=== PATIENT | female | born 1985 | race Caucasian/White ===

== ENCOUNTER 2022-01-16 00:45 | Day surgery (SDC) | payer OTHER, SELFPAY ==
[2022-01-14 16:57] VITALS: BMI 43.0
--- NOTE | 2022-01-14 17:04 | PC.NURSE ---
Report to the Outpatient Waiting Room, entrance under the green pavilion located off [facility], at time __11:00am on date __2-23-40 . OR Time: ____13:00pm____. - You and your visitor will be asked to self-screen and do not enter if you have any COVID symptoms. - Only one visitor and NO children visitors are allowed at this time. - The patient visitor is requested to leave or wait in car when not with patient due to restrictions. - A mask is required within the hospital. Patients may have clear liquids (water, carbonated beverages, clear teas, apple juice) until 3 hours prior to surgery with a maximum of 20 ounces. - No food from midnight until time of surgery - Clear liquids until 10:00am Take the following medications with a SIP of water the morning of surgery: resume home meds evening before Medications to discontinue per physician vitamins Date to take last dose stop now Please no make-up, nail divehi, hairspray, perfume, deodorant, or body powder the day of surgery. No jewelry (including any body piercings) or valuables the day of surgery, leave them at home. Please take a shower or bath the night before, or the morning of, surgery with an antibacterial soap. Wear comfortable, loose fitting clothing. - Jewelry must be removed prior to entering the operating room. Rings and piercings that are not removed may be cut off. - The hospital will not accept responsibility for valuables. - Please leave all valuables, including medications, at home the day of surgery. If you are going home after surgery, a licensed trolley coach driver must drive you home. - NO public transportation without another adult. - We recommend that an adult stay with you for 24 hours following discharge. - We also recommend that you do not drive, make important decision, drink alcoholic beverages, or take any drugs that were not prescribed by your health care provider for at least 24 hours after your discharge time. Follow any additional instructions given to you from your surgeon. If you or anyone in your household have experienced Covid symptoms in the past week, please notify your surgeon or the nurse liaison at the phone number below for possible testing. Telephone instructions given to ___patient___and asked if any additional questions and then verbalized understanding. Patient advised to call surgeon office or pre surgery nurse liaison [phone] if any additional questions.
[2022-01-16] VITALS (7 sets, daily range): BP systolic 99–139; BP diastolic 58–94; PULSE 73–92; RESP 12–20; TEMP 36.1–36.7; O2SAT 94–100
--- NOTE | ~2022-01-16 | XR_ITS ---
EXAMINATION: XR surgery orthopedic DATE: 01/16/2022 14:24 INDICATION: Lisfranc fracture TECHNIQUE: 3 fluoroscopic images of the left midfoot were obtained during procedure performed by Dr. Calderon. Radiologist was not present for the imaging or procedure. The amount of fluoroscopy time use d during this procedure was 1.3 minutes. COMPARISON: 01/14/2022 FINDINGS: Interval reduction of the previously widened articulations between the medial and middle cuneiforms a nd between the medial medial cuneiform and the base of the second metatarsal. The former joint space is been fixed with a variable pitch compression screw. The latter articulation is band by a TrapEase type wire fixation with metallic buttons at either side of lucent tunnels extending across the medial cuneiform and the base of the second metatarsal. Alignment appears near-anatomic. The tiny avulsion fracture fragments previously seen along the lateral margin of the medial cuneiform are indiscernible on the fluoroscopic images. No new fractures identified. Remaining joint spaces are normal. IMPRESSION: 1. Near-anatomic alignment post open reduction and internal fixation of a Lisfranc fracture subluxati on. The procedure for further detail. Reviewed, dictated and finalized at location A. IMPRESSION: 1. Near-anatomic alignment post open reduction and internal fixation of a Lisfr anc fracture subluxation. The procedure for further detail.
--- NOTE | 2022-01-16 07:06 | WPDHPUPDATE1 ---
History and Physical Update Update Date/Time: 01/16/22 07:06 History and Physical has been reviewed, including an updated exam of the patient. There are NO changes in the patient's condition. Risks, benefits, and alternatives have been discussed and questions answered. Patient agrees to proceed with procedure.
--- NOTE | 2022-01-16 08:23 | WPDANESEPPF ---
Anes - Initial Pre Proc Eval Procedure: Operation Date: 01/16/22 13:00 Proposed Procedures p Open Reduction Internal Fixation Left Foot Lisfranc Fracture - Tutu Calderon MD Date/Time: 01/16/22 08:23 Surgeon: Tutu Calderon MD Pre Op Diagnosis: left foot lisfranc fracture Patient Data Age: 37 Gender: F Height: 1.52 m Weight: 100 kg Allergies Allergy/AdvReac Type Severity Reaction Status Date / Time Penicillins Allergy Unknown Unknown Verified 01/16/22 10:41 Home Medications Medication Instructions Recorded Confirmed Type acetaminophen 500 mg tablet 500 mg PO Q6H PRN Pain 01/14/22 01/16/22 History (Tylenol Extra Strength) ascorbic acid-collagen 100 mg PO DIRECTED 01/14/22 01/16/22 History aspirin 325 mg tablet (Jemma 325 mg PO DAILY #30 tabs 01/14/22 01/16/22 Rx Aspirin) biotin 1 tab-cap PO DIRECTED 01/14/22 01/16/22 History calcium carbonate-vitamin D3 1 tab-cap PO DIRECTED 01/14/22 01/16/22 History [Calcium 600 with Vitamin D3] cetirizine 10 mg tablet (Zyrtec) 10 mg PO DAILY PRN Allergy Symptoms 01/14/22 01/16/22 History famotidine 40 mg tablet 40 mg PO DAILY 01/14/22 01/16/22 History omeprazole 40 mg capsule,delayed 40 mg PO DAILY 01/14/22 01/16/22 History release ondansetron 8 mg disintegrating 8 mg PO Q6-8H PRN nausea and 01/14/22 01/16/22 Rx tablet vomiting #10 tabs sertraline 100 mg tablet (Zoloft) 100 mg PO DAILY 01/14/22 01/16/22 History vitamin B complex (B 1 tablet PO DAILY 01/14/22 01/16/22 History Complex-Vitamin B12 tablet) tramadol 50 mg tablet 50 mg PO Q4H PRN pain #14 tabs 01/15/22 01/16/22 Rx Patient hx anesthesia problems: none Family hx anesthesia problems: none Results Review: All pre-operative results and documents have been reviewed as part of the pre-operative evaluation. [facility] Past Medical History Medical History (Updated 01/16/22 @ 08:24 by Chas Bell DO) Anxiety Asthma Foot fracture, left Lisfranc dislocation Lisfranc fracture Surgical History Surgical History H/O gastric sleeve [address] Simmons History of knee surgery right knee ACL repair 2003. Doctor unknown. Lipoma [place] [address] 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 Informed Consent: The patient's anesthetic plan and its attendant risks and benefits were discussed with the patient/family/POA. Questions were solicited and answers provided to the satisfaction of the patient/family/POA.
[2022-01-16] MEDS: LACTATED RINGERS 1,000 ML 30 ML IV CONT ×2 (11:16→14:51)
[2022-01-16] MEDS: KETOROLAC 15 MG/ML VIAL (*BKC) IV PUSH (11:25)
[2022-01-16] MEDS: ACETAMINOPHEN 500 MG TABLET 1000 MG PO (11:25)
[2022-01-16] MEDS: ceFAZolin 2 GM/D5W 50 ML 2 GM/50 ML BAG IVPB (12:49)
[2022-01-16] MEDS: BUPIVACAINE HCL 0.5% PF 30 ML VIAL INFILTRATE (13:33)
--- NOTE | 2022-01-16 15:05 | W.PM.PROC2 ---
Procedure Note - Detailed Date of Procedure 01/16/22 Pre-op Diagnosis left foot lisfranc fracture Post-op Diagnosis Same Procedure Performed Open reduction internal fixation left foot Lisfranc fracture dislocation. Surgeon Tutu Calderon MD Foot Press Operator phlebotomist medical lab assistant Anesthesia General Indications 37-year-old woman who fell and sustained a left foot Lisfranc fracture dislocation. MRI and stress radiographs demonstrate instability and subluxation. Patient presents for operative treatment. Description of Procedure Patient identified in the preoperative holding. Informed consent given. Operative extremity marked. Patient received intravenous antibiotics. Patient brought to the operating room where underwent general anesthetic by anesthesia team. Positioned supine on operating room table. Time-out performed confirming the patient, site of the surgery and the plan. Left foot prepped draped usual sterile surgical fashion using ChloraPrep skin solution. Foot ankle exsanguinated and the thigh tourniquet inflated to 250 mmHg. Dorsal longitudinal incision made over the base of the 2nd metatarsal with a 15 blade knife. Hemostasis controlled electrocautery. Neurovascular elements identified and retracted. Dorsal capsulotomy performed in line with the skin incision. The base of the 2nd metatarsal was then exposed. There is noted to be lateral displacement of the metatarsal. Fracture line was cleared out with osteotome and rongeur. This was then thoroughly irrigated. Second tarsometatarsal joint was inspected and noted otherwise be intact. Fracture was then reduced and provisionally pinned. Fixation was achieved with tight rope fixation placed from the base of the 2nd metatarsal to the medial cuneiform. Image intensification confirmed good alignment and placement of the hardware. Longitudinal incision was then made over the medial aspect of the medial cuneiform with a 15 blade knife. Hemostasis controlled electrocautery. Guide pin was then placed from the cuneiform across the inner cuneiform joint to the middle cuneiform. This was over reamed on the cuneiform side with a 3.0 mm drill. Guide pin was measured and appropriate sized 3.5 mm headless compression screw placed from medial to lateral. Good fixation was noted. Fixation clamp was removed and good alignment was maintained and verified with image intensification. Wounds were thoroughly irrigated antibiotic solution and closed with 00 Vicryl interrupted suture for the fascia, 3 0 Monocryl interrupted suture for the subcutaneous tissue and 4 O subcuticular Monocryl for the skin. Sterile dressing applied. The patient was then woken from anesthesia, extubated and taken to the recovery room in stable condition. All sponge, needle, instrument counts were correct at the end of the case. Implants Arthrex 3.5 mm cannulated headless screw. Arthrex tight rope fixation system Estimated Blood Loss -5.0 Tourniquet Time 65 Drains No Packing No Pathology None sent Complications None Condition Stable Disposition PACU
[2022-01-16] MEDS: ONDANSETRON INJ 4 MG/2 ML VIAL IV PUSH (15:49)
== END 2022-01-16 16:05 | disposition home or self-care (01) ==
PROVIDERS: PCP Family Medicine; Visit Provider Orthopaedic Surgery
PROC: (CPT 28485; principal; 2022-01-16 13:00)
DX: S92.322A Displaced fracture of second metatarsal bone, left foot, initial encounter for closed fracture (principal); V18.0XXA Pedal cycle driver injured in noncollision transport accident in nontraffic accident, initial encounter; Z79.82 Long term (current) use of aspirin; F41.9 Anxiety disorder, unspecified; J45.909 Unspecified asthma, uncomplicated; E66.01 Morbid (severe) obesity due to excess calories; Z68.41 Body mass index [BMI] 40.0-44.9, adult; Z98.84 Bariatric surgery status
CPT/HCPCS: 28485; 28615; 99199; A9270; J0690; J1885; J2250; J2405; J2704; J3010; J7120

== ENCOUNTER 2022-05-29 00:51 | Day surgery (SDC) | payer OTHER, SELFPAY ==
[2022-05-14 14:54] VITALS: BMI 31.4
--- NOTE | 2022-05-14 14:59 | PC.NURSE ---
Report to the Outpatient Waiting Room, entrance under the green pavilion located off [facility], at time 0600 on date 05/29/22. Planned Procedure Time: 0730. Time changes happen often and if your time is changed the preop area will call you the afternoon before. - You and your visitor will be asked to self-screen and do not enter if you have any COVID symptoms. - Only one visitor is requested with a max of two and NO children visitors are allowed at this time. - The patient visitor may be requested to leave or wait in car when not with patient due to distancing restrictions. - A mask is optional within the hospital. Patients may have clear liquids (water, carbonated beverages, clear teas, apple juice) until 3 hours prior to surgery with a maximum of 20 ounces. - No food from midnight until time of surgery Take the following medications with a SIP of water the morning of surgery: TYLENOL IF NEEDED Medications to discontinue per physician: VITAMINS/SUPPLEMENTS Date to take last dose: 05/25/22 Please no make-up, nail jamaican, hairspray, perfume, deodorant, or body powder the day of surgery. No jewelry (including any body piercings) or valuables the day of surgery, leave them at home. Please take a shower or bath the night before, or the morning of, surgery with an antibacterial soap. Wear comfortable, loose fitting clothing. - Jewelry must be removed prior to entering the operating room. Rings and piercings that are not removed may be cut off. - The hospital will not accept responsibility for valuables. - Please leave all valuables, including medications, at home the day of surgery. If you are going home after surgery, a licensed lift driver must drive you home. - NO public transportation without another adult if you receive anesthesia. - We recommend that an adult stay with you for 24 hours following discharge. - We also recommend that you do not drive, make important decision, drink alcoholic beverages, or take any drugs that were not prescribed by your health care provider for at least 24 hours after your discharge time. Follow any additional instructions given to you from your surgeon. If you or anyone in your household have experienced Covid symptoms in the past week, please notify your surgeon or the nurse liaison at the phone number below for possible testing. Telephone instructions given to PT - LINH MCKEON and asked if any additional questions and then verbalized understanding. Patient advised to call surgeon office or pre surgery nurse liaison [phone] if any additional questions.
--- NOTE | 2022-05-28 16:30 | PM.IMHP ---
H&P: HPI History of Present Illness Date/Time: 05/28/22 16:30 Chief Complaint: Left foot pain Narrative: 37-year-old woman status post left foot Lisfranc injury. Treated with internal fixation. Now with pain and prominent orthopedic hardware. At risk for hardware fracture and displacement. Presents for removal. Review of Systems Constitutional: Constitutional: Denies fever(s) Eyes: Eyes: Denies blurry vision ENT: Reports Normal hearing present Cardiovascular: Cardiovascular: Denies chest pain and Denies dyspnea Respiratory: Respiratory: Denies dyspnea and Denies wheezing Gastrointestinal: Gastrointestinal: Denies abdominal pain Genitourinary: Genitourinary: Denies urinary urgency Musculoskeletal: Musculoskeletal: Reports as per HPI and Denies numbness Integumentary/Breasts: Skin/Breast: Denies changing lesions and Denies sores Neurologic: Reports Normal hearing present, Denies behavioral changes, Denies confusion, Denies numbness and Denies convulsions Psychiatric: Psychiatric: Denies behavioral changes, Denies confusion and Denies hallucinations Endocrine: Endocrine: Denies heat intolerance Hematologic/Lymphatic: Hematologic/Lymphatic: Denies easy bleeding Allergic/Immunologic: Allergic/Immunologic: Denies wheezing PMFSH Past Medical History Medical History (Updated 05/28/22 @ 16:34 by Tutu Calderon MD) Anxiety Asthma Foot fracture, left Lisfranc dislocation Lisfranc fracture Painful orthopaedic hardware Surgical History Surgical History H/O gastric sleeve [address] Simmons History of knee surgery right knee ACL repair 2003. Doctor unknown. Lipoma [place] [address] 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 Spiritual care concerns: No Meds Home Medications and Allergies Home Medications Medication Instructions Recorded Confirmed Type acetaminophen 500 mg tablet 500 mg PO Q6H PRN Pain 01/14/22 05/14/22 History (Tylenol Extra Strength) ascorbic acid-collagen 100 mg PO DIRECTED 01/14/22 05/14/22 History biotin 1 tab-cap PO DIRECTED 01/14/22 05/14/22 History calcium carbonate-vitamin D3 1 tab-cap PO DIRECTED 01/14/22 05/14/22 History [Calcium 600 with Vitamin D3] cetirizine 10 mg tablet (Zyrtec) 10 mg PO DAILY PRN Allergy Symptoms 01/14/22 05/14/22 History famotidine 40 mg tablet 40 mg PO DAILY 01/14/22 05/14/22 History omeprazole 40 mg capsule,delayed 40 mg PO DAILY 01/14/22 05/14/22 History release ondansetron 8 mg disintegrating 8 mg PO Q6-8H PRN nausea and 01/14/22 05/14/22 Rx tablet vomiting #10 tabs sertraline 100 mg tablet (Zoloft) 100 mg PO DAILY 01/14/22 05/14/22 History vitamin B complex (B 1 tablet PO DAILY 01/14/22 05/14/22 History Complex-Vitamin B12 tablet) cholecalciferol (vitamin D3) 125 125 mcg PO DAILY 05/14/22 05/14/22 History mcg (5,000 unit) tablet (Vitamin D3) Allergies Allergy/AdvReac Type Severity Reaction Status Date / Time Penicillins Allergy Unknown Rash Verified 05/14/22 14:52 clindamycin Allergy Unknown Verified 05/14/22 14:52 Exam Const: General: No confusion Orientation/consciousness: No confusion HENMT: Head: normal to inspection, normocephalic and atraumatic Eyes: Conjunctivae: conjunctivae normal Sclera: sclerae normal Neck: Neck: supple and nontender Chest:
[2022-05-29] VITALS (7 sets, daily range): BP systolic 95–113; BP diastolic 57–80; PULSE 77–86; RESP 16–18; TEMP 36.2–36.4; O2SAT 94–100
--- NOTE | ~2022-05-29 | XR_ITS ---
EXAMINATION: XR surgery orthopedic DATE: 05/29/2022 08:00 INDICATION: Fixation screw removal at the left midfoot TECHNIQUE: 3 fluoroscopic images of the left midfoot were obtained during procedure performed by Dr. Calderon. Radiologist was not present for the imaging or procedure. The amount of fluoroscopy time use d during this procedure was 0.3 minutes. COMPARISON: 01/16/2022 FINDINGS: Interval removal of the compression screw spanning the articulation between the medial and middle cun eiforms. Again seen is a tightrope type fixation along the course of the Lisfranc ligament with small metallic buttons along the medial and lateral sides of the lucent tunnel. Mild polyarticular osteoar thritis at the naviculocuneiform and tarsometatarsal joints. IMPRESSION: 1. Loss of Boehler's during removal of a compression screw spanning the medial and mid cuneiforms. Reviewed, dictated and finalized at location A. [facility]
[2022-05-29] MEDS: ACETAMINOPHEN 500 MG TABLET 1000 MG PO (06:26)
--- NOTE | 2022-05-29 06:41 | SUR.PREOP ---
pt states has crutches at home and aware how to use.
[2022-05-29] MEDS: KETOROLAC 15 MG/ML VIAL (*BKC) IV PUSH (06:46)
[2022-05-29] MEDS: LACTATED RINGERS 1,000 ML 30 ML IV CONT (06:46)
--- NOTE | 2022-05-29 06:46 | WPDANESEPPF ---
Anes - Initial Pre Proc Eval Procedure: Operation Date: 05/29/22 07:30 Proposed Procedures p Removal Hardware Left Foot - Tutu Calderon MD Date/Time: 05/29/22 06:46 Surgeon: Tutu Calderon MD Pre Op Diagnosis: left foot painful hardware Patient Data Age: 37 Gender: F Height: 1.65 m Weight: 81.5 kg Last Vital Signs Temp 36.2 C L 05/29/22 06:03 Pulse 82 05/29/22 06:03 Resp 16 05/29/22 06:03 BP 112/80 05/29/22 06:03 Pulse Ox 97 05/29/22 06:03 O2 Del Method Room Air 05/29/22 06:03 Allergies Allergy/AdvReac Type Severity Reaction Status Date / Time Penicillins Allergy Unknown Rash Verified 05/14/22 14:52 clindamycin Allergy Unknown Verified 05/29/22 06:16 Home Medications Medication Instructions Recorded Confirmed Type acetaminophen 500 mg tablet 500 mg PO Q6H PRN Pain 01/14/22 05/29/22 History (Tylenol Extra Strength) ascorbic acid-collagen 100 mg PO DIRECTED 01/14/22 05/29/22 History biotin 1 tab-cap PO DIRECTED 01/14/22 05/29/22 History calcium carbonate-vitamin D3 1 tab-cap PO DIRECTED 01/14/22 05/29/22 History [Calcium 600 with Vitamin D3] cetirizine 10 mg tablet (Zyrtec) 10 mg PO DAILY PRN Allergy Symptoms 01/14/22 05/29/22 History famotidine 40 mg tablet 40 mg PO DAILY 01/14/22 05/29/22 History omeprazole 40 mg capsule,delayed 40 mg PO DAILY 01/14/22 05/29/22 History release ondansetron 8 mg disintegrating 8 mg PO Q6-8H PRN nausea and 01/14/22 05/29/22 Rx tablet vomiting #10 tabs sertraline 100 mg tablet (Zoloft) 100 mg PO DAILY 01/14/22 05/29/22 History vitamin B complex (B 1 tablet PO DAILY 01/14/22 05/29/22 History Complex-Vitamin B12 tablet) cholecalciferol (vitamin D3) 125 125 mcg PO DAILY 05/14/22 05/29/22 History mcg (5,000 unit) tablet (Vitamin D3) Patient hx anesthesia problems: none Family hx anesthesia problems: none Results Review: All pre-operative results and documents have been reviewed as part of the pre-operative evaluation. [facility] Past Medical History Medical History Anxiety Asthma Foot fracture, left Lisfranc dislocation Lisfranc fracture Painful orthopaedic hardware Surgical History Surgical History H/O gastric sleeve [address] Simmons History of knee surgery right knee ACL repair 2003. Doctor unknown. Lipoma [place] [address] 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 Informed Consent: The patient's anesthetic plan and its attendant risks and benefits were discussed with the patient/family/POA. Questions were solicited and answers provided to the satisfaction of the patient/family/POA.
--- NOTE | 2022-05-29 07:10 | WPDHPUPDATE1 ---
History and Physical Update Update Date/Time: 05/29/22 07:10 History and Physical has been reviewed, including an updated exam of the patient. There are NO changes in the patient's condition. Risks, benefits, and alternatives have been discussed and questions answered. Patient agrees to proceed with procedure.
[2022-05-29] MEDS: ceFAZolin 2 GM/D5W 50 ML 2 GM/50 ML BAG IVPB (07:18)
[2022-05-29] MEDS: BUPIVACAINE HCL 0.5% PF 30 ML VIAL 10 ML INFILTRATE (07:54)
--- NOTE | 2022-05-29 08:12 | P.OP_ITS ---
Procedure Note - Detailed Date of Procedure 05/29/22 Pre-op Diagnosis left foot painful hardware Post-op Diagnosis Same Procedure Performed Removal painful hardware left foot, deep Surgeon Tutu Calderon MD [employer] 1st property management assistant Anesthesia General Indications 37-year-old status post internal fixation left foot fracture. Now with painful hardware. Presents for removal. Description of Procedure Patient identified in preoperative holding area. Informed consent given. Operative extremity marked. patient received intravenous antibiotics. Taken the operating room and placed supine on the operating room table. Patient underwent general anesthesia by the anesthesia team. Time-out performed confirming patient, site of the surgery and plan. Left foot then prepped and draped usual sterile surgical fashion using a ChloraPrep skin solution. Local anesthetic with 0.5% Marcaine plain. Previous incision over the medial arch of the foot utilized and made with 15 blade knife. Hemostasis controlled electrocautery. Dissection carried down through the fascia. Hardware identified and a guide pin was placed into the cannulated portion and verified with image intensification. Screw driver's license examiner used to remove the screw. Bone curetted and wound irrigated with saline. Fluoroscopic stress views of the foot then performed and the Lisfranc joint noted to be stable. Wound closed with 3 Monocryl subcuticular stitch and glue for the skin. Sterile dressing applied. Patient awoke from anesthesia, extubated and taken to recovery room in stable condition. All sponge, needle and instrument counts correct in the case. Estimated Blood Loss 5 Tourniquet Time 0 Drains No Packing No Pathology None sent Complications None Condition Stable Disposition PACU [facility] Billing Surgery - Charge Forward: Surgery Billing ([id number])
== END 2022-05-29 09:35 | disposition home or self-care (01) ==
PROVIDERS: PCP Family Medicine; Visit Provider Orthopaedic Surgery
PROC: (CPT 20680; principal; 2022-05-29 07:30)
DX: T84.84XA Pain due to internal orthopedic prosthetic devices, implants and grafts, initial encounter (principal); M79.672 Pain in left foot; Y83.8 Other surgical procedures as the cause of abnormal reaction of the patient, or of later complication, without mention of misadventure at the time of the procedure; Z87.81 Personal history of (healed) traumatic fracture; Z98.84 Bariatric surgery status; F41.9 Anxiety disorder, unspecified; E66.9 Obesity, unspecified; Z68.29 Body mass index [BMI] 29.0-29.9, adult
CPT/HCPCS: 20680; 99199; A9270; J0690; J1040; J1100; J1885; J2250; J2405; J2704; J3010; J7120